=== PATIENT | female | born 1995 | race Caucasian/White ===

== ENCOUNTER 2020-11-22 05:41 | Day surgery (SDC) | payer OTHER, SELFPAY ==
[2020-11-21 16:28] VITALS: BMI 25.7
[2020-11-22] VITALS (7 sets, daily range): BP systolic 92–114; BP diastolic 60–74; PULSE 63–97; RESP 13–18; TEMP 36.2–36.6; O2SAT 95–100
--- NOTE | 2020-11-22 06:31 | ANES.PREANE2 ---
Pre-Anesthetic Assessment Pre-Anesthetic Assessment: Height/Weight: Height 1.63 m Weight 68.039 kg Proposed Procedure: Operation Date: 11/22/20 07:10 Proposed Procedures p Dilation And Curettage (D&C) O03.9 32381(Not Applicable) - Mendoza Caro MD Was Beta Angela taken within 24 hours: N/A Was Clonidine taken within 24 hours: N/A Last intake: Intake Last Liquid Date 11/21/20 Last Liquid Time 21:00 Last Solid Date 11/21/20 Last Solid Time 19:00 Social: Social History: No alcohol and No tobacco Exam: Pre-Anes Outpt Exam: alert, oriented x 3, clear to auscultation bilaterally and regular rate & rhythm Airway: Submandibular: WNL Cervical ROM: WNL MP: 2 Dentition: Full History/ROS: No significant history except as noted Neuropsych: Neuropsych: Anxiety Anesthetic Plan: ASA status: 2 Anesthesia: General Other: H/O PONV Risk of > 500 ml blood loss (7ml/kg in children): No PFSH Anesthesia PFSH: Social History (Updated 11/21/20 @ 16:16 by Maren Medellin) Smoking and tobacco status: never smoked Data Anesthesia Cardiac Studies: No Data to Display
[2020-11-22] MEDS: sodium chloride 0.9% 1,000 ML 30 ML IV (06:42)
[2020-11-22] MEDS: diphenhydrAMINE 50 mg/mL SDV 1mL 12.5 MG IVP (06:46)
--- NOTE | 2020-11-22 06:48 | P.HP_ITS ---
Providers/Chief Complaint Primary Care Provider: Mendoza Caro MD Chief Complaint: O03.4 History of Present Illness Anita Martin is a 25 year old female who presented to my office 2 days ago for checkup at 9 weeks estimated gestational age. During her visit, we were unable to obtain a heart tones. An ultrasound was done which demonstrated a nonviable fetus. We talked about options at that time, and we elected to proceed with Cytotec. She went home and took her first dose of Cytotec. She had severe cramping and had a small amount of bleeding, but was emotionally distressed, and physically was in a lot of pain. As result she contacted me, and we elected to proceed with a D&C. We once again discussed the alternatives and the option to continue to wait for a spontaneous . We discussed the risks of bleeding, and uterine perforation. She would like to proceed. Review of Systems General: Reports: 10 or more systems reviewed and unremarkable except in HPI and below Const: Denies: fever(s) Card: Denies: chest pain or irregular heart rhythm Resp: Denies: dyspnea : Reports: vaginal bleeding and pelvic pain Medications/Allergies Home Medications Medication Instructions Recorded Confirmed Last Taken Type alprazolam 0.25 mg PO Q4-5H PRN 11/21/20 11/21/20 Unknown History hydrocodone-acetaminophen [[place]] 1 tab PO Q4H PRN 11/21/20 11/21/20 Unknown History Allergies Allergy/AdvReac Type Severity Reaction Status Date / Time No Known Allergies Allergy Verified 11/21/20 16:14 PFSH PFSH: Social History Smoking and tobacco status: never smoked Vital Signs Weight: Weight last 48 hrs Weight 150 lb Weight 150 lb Weight 4 lb Physical Exam Const: COMMON NORMALS: no acute distress and patient oriented x3 GENERAL APPEARANCE: cooperative, comfortable and well developed HENMT: COMMON NORMALS: normocephalic and moist oral mucous membranes HEAD & SCALP: normocephalic Chest: COMMONS NORMALS: normal inspection of the chest Resp: COMMON NORMALS: normal respiratory effort and clear to auscultation bilaterally AUSCULTATION: clear to auscultation bilaterally Cardio: COMMON NORMALS: regular rate, regular rhythm, No gallops present (Cardio), No murmurs present (Cardio) and No rub (Cardio) RATE: regular rate RHYTHM: regular rhythm Extremity: COMMON NORMALS: normal to inspection Neuro: COMMON NORMALS: patient oriented x3 and no focal motor deficits Skin: COMMON NORMALS: no rashes or lesions noted GENERAL SKIN EXAM: no rashes or lesions noted A&P Assessment and plan (1) Incomplete : Proceed with a D&C. Suction will probably not be necessary but will have a set up just in case. 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
[2020-11-22] MEDS: midazolam 1 mg/mL INJ 2 mL 2 MG IVP (06:55)
--- NOTE | 2020-11-22 07:23 | PM.OP ---
Operative Report Date of procedure: November 22, 2020 Pre-op Diagnosis: Incomplete at 9 weeks estimated gestational age Post-op diagnosis: same Post-op Findings: Proximal of conception consistent with an incomplete at 9 weeks estimated gestational age Procedure Done: Dilation and curettage Specimens removed/disposition: Products of conception Pathology: other Pathology: Products of conception Surgeon: Mendoza Caro Anesthesia: General Estimated blood loss (mL): 20 Complications: None Condition: stable Disposition: same day Brief History: Refer to history and physical Procedure: The patient was brought back to the operating room where she was placed in the dorsolithotomy position and prepped in the usual fashion. After a brief Ellik exam was determined that her uterus was anteflexed a weighted speculum was then placed. A tenaculum was used to grasp the anterior lip of the cervix. Some products of conception were noted at the os of the cervix. It was grasped with ring forceps removed without difficulty. I then used a curette to carefully curettage all 4 quadrants of the uterus. Any remaining proximal of conception were also removed and sent to pathology. After obtaining an excellent uterine cry in all quadrants, the tenaculum was then removed. The cervix was observed and found no further bleeding. The patient was then wheeled to the PACU in stable condition. Associated Problem List Diagnoses (1) 9 weeks gestation of : (2) Incomplete :
--- NOTE | 2020-11-22 13:06 | ANE.PACU2 ---
Inpatient post-anesthesia follow up: Airway intact: Yes Vital signs: Temperature 98 F Pulse Rate 63 Respiratory Rate 16 Blood Pressure 114/73 Pulse Oximetry 95 Oxygen Delivery Me thod Room Air Oxygen Flow Rate 8 Fraction of Inspir ed Oxygen Hydration adequate: Yes Nausea and vomiting: No Pain level: 1 Mental status: Baseline
== END 2020-11-22 08:38 | disposition home or self-care (01) ==
PROVIDERS: PCP Family Medicine; Visit Provider Family Medicine
PROC: (CPT 58120; principal; 2020-11-22 07:00)
DX: O03.4 Incomplete spontaneous abortion without complication (principal); Z3A.09 9 weeks gestation of pregnancy
CPT/HCPCS: 59812; 12345; 88305; J1100; J1200; J2250; J2405; J2550; J2704; J3010; J7030

== ENCOUNTER 2022-11-19 05:15 | Inpatient (IN) | payer OTHER, SELFPAY ==
--- NOTE | 2022-11-10 09:10 | ANES.PREANE2 ---
Pre-Anesthetic Assessment Height/Weight: Height 1.63 m Preop Diagnosis: Incomplete at 9 weeks estimated gestational age Operation Date: 11/19/22 07:00 Proposed Procedures p Section(Not Applicable) - Mendoza Caro MD Familial anesthetic complications: PONV Social No alcohol and No tobacco Exam alert, oriented x 3, clear to auscultation bilaterally and regular rate & rhythm Airway Mallampati: Class II Dentition: full CV/HEM factor V leiden Deficiency (Has had epidural before) - No hx of symptoms or complications, but has been put on blood thinner. has been told to hold lovenox 40 mg daily for 12 hours before c section Anesthetic Plan ASA status: 3 Anesthesia: Regional (specify below) Risk of > 500 ml blood loss (7ml/kg in children): Yes, adequate IV access and fluids planned Medications/Allergies Home Medications Medication Instructions Recorded Confirmed Last Taken Type alprazolam 0.25 mg tablet 0.25 mg PO Q4-5H PRN Anxiety 11/21/20 11/21/20 Unknown History hydrocodone 10 mg-acetaminophen 1 tab PO Q4H PRN Pain 11/21/20 11/21/20 Unknown History 325 mg tablet ([place]) Allergies Allergy/AdvReac Type Severity Reaction Status Date / Time No Known Allergies Allergy Verified 11/21/20 16:14 PFS Anesthesia Social History Smoking and tobacco status: never smoked Data Anesthesia Cardiac Studies: No Data to Display
[2022-11-19] VITALS (37 sets, daily range): BP systolic 87–140; BP diastolic 45–84; PULSE 75–112; RESP 16–18; TEMP 36.3–36.9; O2SAT 98–100; BMI 32.2
[2022-11-19 05:21] LABS: Basophils % 0.3 %; Eosinophils # 0.1 10^3/uL (0.0-0.8); Eosinophils % 0.6 %; Hematocrit 40.7 % (37.0-47.0); Lymphocytes # 2.6 10^3/uL (0.8-4.8); Mean Corpuscular HGB Conc 31.9 g/dL (30.0-36.0); Mean Corpuscular Hemoglobin 27.5 pg (28.0-34.0); Mean Corpuscular Volume 86.2 fl (81-99); Mean Platelet Volume 11.3 fL (7.4-10.4); Monocytes % 7.8 %; Neutrophils # 8.41 10^3/uL (1.8-7.7); Neutrophils % 69.4 %; Nucleated Red Blood Cells % 0 %; Platelet Count 332 10^3/cmm (130-400); Red Blood Count 4.72 10^6/uL (4.1-5.3); Red Cell Distribution Width 14.1 % (12.1-15.1); White Blood Count 12.1 10^3/uL (4.0-10.0)
[2022-11-19] MEDS: ceFAZolin 2,000 MG in sodium chloride 0.9% (plus) 50 ML 100 MG IV (05:38)
[2022-11-19] MEDS: lactated ringers 1,000 ML 999 ML IV (05:38)
[2022-11-19] MEDS: metoclopramide 5 mg/mL SDV 2 mL 10 MG IVP (06:32)
[2022-11-19] MEDS: famotidine 20 mg/2 mL INJ IVP (06:32)
[2022-11-19] MEDS: citric acid-sodium citrate 30 mL UDC PO (06:32)
--- NOTE | 2022-11-19 06:49 | P.HP_ITS ---
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 The of the patient has been remarkable for being heterozygous factor V Leiden. She had had multiple miscarriages in the past and has been on Lovenox throughout her , and she stopped it about 36 hours prior to surgery. Otherwise, her has been unremarkable. . Present Details : 5 Para: 1 Labs Rubella: Immune RPR: Negative GBS: Negative Review of Systems General: Reports: 10 or more systems reviewed and unremarkable except in HPI and below Const: Reports: fatigue; Denies: fever(s) Eyes: Denies: change in vision Card: Denies: chest pain Musc: Reports: back pain Antwan/Lymph: Denies: easy bruising Medications/Allergies Home Medications Medication Instructions Recorded Confirmed Last Taken Type prenat.vits,hannah,kvy-pxnw-eahzi 1 tab PO DAILY 11/19/22 11/19/22 11/18/22 History docusate sodium 100 mg capsule 100 mg PO BID #14 caps 11/20/22 Unknown Rx hydrocodone 5 mg-acetaminophen 325 1 tab PO Q6H PRN Moderate To 11/20/22 Unknown Rx mg tablet Severe Pain #28 tabs ibuprofen 800 mg tablet 800 mg PO TID #45 tabs 11/20/22 Unknown Rx Allergies Allergy/AdvReac Type Severity Reaction Status Date / Time No Known Allergies Allergy Verified 11/19/22 05:26 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 PFSH: Medical History (Updated 11/21/22 @ 00:03 by ISA Millan) Factor V deficiency Surgical History (Updated 11/21/22 @ 00:03 by ISA Millan) History of Social History Smoking and tobacco status: never smoked Vitals/I&O/Wt Last Vital Signs Pulse 108 H 11/19/22 05:03 Resp 16 11/19/22 05:15 BP 127/84 11/19/22 05:03 O2 Del Method 11/19/22 05:42 Weight last 48 hrs Weight 188 lb Physical Exam Const: COMMON NORMALS: patient oriented x3 and alert HENMT: COMMON NORMALS: moist oral mucous membranes HEAD & SCALP: normal to inspection Chest: COMMONS NORMALS: normal inspection of the chest Resp: COMMON NORMALS: clear to auscultation bilaterally AUSCULTATION: clear to auscultation bilaterally Cardio: COMMON NORMALS: regular rate and regular rhythm RATE: regular rate RHYTHM: regular rhythm GI: INSPECTION: Yes normal to inspection and Yes other (Gravid) Extremity: COMMON NORMALS: normal to inspection GENERAL: Yes edema (Trace) Neuro: COMMON NORMALS: patient oriented x3, moves all extremities and no sensory deficits noted SENSORIUM/ORIENTATION: Yes alert Psych: COMMON NORMALS: mental status grossly normal Skin: COMMON NORMALS: no rashes or lesions noted GENERAL SKIN EXAM: no rashes or lesions noted Data 11/19/22 05:10 A&P Assessment and plan (1) 39 weeks gestation of : (2) History of : We will proceed with a repeat section. We have discussed the risks and alternatives. We discussed the risks of bleeding, infection, damage intra- abdominal organs. The patient had been on Lovenox due to her factor V def iciency. That was stopped on Wednesday. (3) Factor V deficiency: Attestations Medical Necessity Statement*: I anticipate routine and post C- section care. Coding Level of Care Code Acute Code for Chg Fwd Diagnoses 39 weeks gestation of Z3A.39 History of Z98.891 Factor V deficiency D68.2
--- NOTE | 2022-11-19 06:57 | P.ANESUD_ITS ---
Pre-Anesthetic Update Pre-Anesthetic Assessment: Date of Surgery/Procedure: 11/19/22 Preop Janice gnosis: Incomplete at 9 weeks estimated gestational age Proposed Procedure: Operation Date: 11/19/22 07:00 Proposed Procedures p Section(Not Applicable) - Mendoza Caro MD Any changes to Pre-Anesthetic Assessment?: No Changes from Pre-Anesthetic Assessment: 2199 Last Intake: Intake Last Liquid Date 11/18/22 Last Liquid Time 23:30 Last Solid Date 11/18/22 Last Solid Time 22:00 Last Intake: 22:00 Labs Last 48hrs: Short CBC 11/19/22 Range/Units 05:10 WBC 12.1 H (4.0-10.0) 10^3/ uL Hgb 13.0 (11.5-15.3) g/dL Hct 40.7 (37.0-47.0) % MCV 86.2 (81-99) fl Plt Count 332 (130-400) 10^3/c mm Neut % (Auto) 69.4 % Neut # (Auto) 8.41 H (1.8-7.7) 10^3/u L Vitals: Pulse Rate 101 H 11/19/22 06:51 Pulse Rhythm 11/19/22 05:42 Pulse Strength 3+ Normal 11/19/22 05:42 Respiratory Rate 16 11/19/22 05:15 Respiratory Effort Non-Labored 11/19/22 05:42 Respiratory Depth Normal 11/19/22 05:42 Respiratory Patter n 11/19/22 05:42 Blood Pressure 111/74 11/19/22 06:51 Oxygen Delivery Me thod 11/19/22 05:42 Exam: Pre-Anes Outpt Exam: alert, oriented x 3, clear to auscultation bilaterally and regular rate & rhythm Cardiac Studies: No Data to Display
--- NOTE | 2022-11-19 08:29 | PM.OP ---
Operative Report Date of procedure: November 19, 2022 Pre-op diagnosis: 27-year-old 39-week estimated gestational age female presenting for a repeat section Post-op diagnosis: Status post lower transverse section Procedure done: Lower transverse section Specimens removed/disposition: 1. Male with a weight of 7 pounds 13 ounces and Apgars of 8 and 9 2. Placenta with a three-vessel cord delivered intact Surgeon: Mendoza Caro Estimated blood loss (mL): 800 Complications: None Procedure: The patient was brought back to the operating room where she was prepped and draped in usual sterile fashion. Anesthesia was found to be adequate. A lower transverse skin incision was then made with a #10 blade. I then dissected down to the underlying subcutaneous tissue until arriving at the prerectal fascia. The fascia was then nicked with the scalpel bilaterally. The fascial incisions were then carried laterally with Yin scissors. Attention was then turned to the superior aspect of the incision which was grasped with kochers and tented up away from the underlying rectus abdominis muscles. The muscles were then dissected away from the fascia manually, and later with Yin scissors. Attention was then turned to the inferior aspect of the incision, and the fascia was dissected away from the underlying muscle in similar fashion. The rectus abdominis muscles were then spread manually. The peritoneum was entered manually. Excellent visualization of the uterus was noted. A lower transverse uterine incision was then made with a #10 blade. Upon arriving at the intrauterine cavity, the uterine incision was then extended manually. The was noted to be in vertex position. The baby was delivered without difficulty. After delivery of the head, the mouth and nose were suctioned at the site of the incision. There was no meconium. There was a nuchal cord x1. The remainder of the body was then delivered and placed on the abdomen. The cord was cut and clamped. The baby was then handed to the waiting nurse. The placenta was removed intact. The uterus was externalized. The intrauterine cavity was cleansed of any remaining debris. The uterine incision was reapproximated in 2 layers. The first layer was performed with 0 Vicryl in a running locked stitch. The second layer was an imbricating stitch also using 0 Vicryl. The uterus was replaced into the abdomen. The peritoneum was then irrigated with warm saline. I reexamined the uterine incision and found it to be hemostatic. The rectus abdominis muscles were then reapproximated using 0 Vicryl in a running stitch. The fascia was then reapproximated using 0 Vicryl in running stitch. The skin was reapproximated using liliam. A sterile dressing was placed. All counts were correct x2. Both the mother and baby were in stable condition.
--- NOTE | 2022-11-19 10:34 | PC.NURSE ---
0800 REMAINS IN OR.
[2022-11-19] MEDS: dextrose 5%-lactated ringers 1,000 ML 125 ML IV (11:04)
--- NOTE | 2022-11-19 11:40 | PC.NURSE ---
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 HAD ASKED MIRNA TO HAVE SOMEONE RUB HER AT 1015.
[2022-11-19] MEDS: ondansetron 2 mg/ML SDV 2 mL 4 MG IVP (12:06)
--- NOTE | 2022-11-19 12:52 | ANE.PACU2 ---
Inpatient post-anesthesia follow up: Airway intact: Yes Vital signs: Temperature 98.4 F Pulse Rate 96 Respiratory Rate 16 Blood Pressure 113/66 Pulse Oximetry Oxygen Delivery Me thod Room Air Oxygen Flow Rate Fraction of Inspir ed Oxygen Hydration adequate: Yes Nausea and vomiting: No Pain level: 2 Mental status: Baseline
--- NOTE | 2022-11-19 15:37 | PC.NURSE ---
1505 PT UP TO CHAIR, DID GREAT.
[2022-11-19] MEDS: ketorolac 30 mg/mL INJ IVP ×2 (17:29→23:42)
[2022-11-19 22:43] LABS: Hematocrit 32.7 % (37.0-47.0); Hemoglobin 10.7 g/dL (11.5-15.3); Mean Corpuscular HGB Conc 32.7 g/dL (30.0-36.0); Mean Corpuscular Hemoglobin 28.1 pg (28.0-34.0); Mean Corpuscular Volume 85.8 fl (81-99); Mean Platelet Volume 11.1 fL (7.4-10.4); Platelet Count 236 10^3/cmm (130-400); Red Blood Count 3.81 10^6/uL (4.1-5.3); Red Cell Distribution Width 14.2 % (12.1-15.1); White Blood Count 16.6 10^3/uL (4.0-10.0)
[2022-11-20 02:25] VITALS: BP 102/62; PULSE 78
[2022-11-20] MEDS: simethicone 80 mg Chew PO (02:38)
[2022-11-20] MEDS: HYDROcodone-acetaminophen 5-325 mg Tablet PO ×2 (04:08→08:10)
[2022-11-20 04:11] VITALS: BP 96/58; PULSE 86; RESP 16
[2022-11-20] MEDS: docusate sodium 100 mg Capsule PO (08:10)
[2022-11-20] MEDS: prenatal vitamin Capsule 1 CAP PO (08:10)
[2022-11-20] MEDS: ibuprofen 800 mg tablet PO (09:23)
[2022-11-20] MEDS: cetirizine 10 mg Tablet PO (09:23)
[2022-11-20 10:31] VITALS: BP 116/73; PULSE 92; TEMP 36.1
[2022-11-20 11:03] VITALS: BP 116/73; PULSE 92; RESP 18; TEMP 36.1
--- NOTE | 2022-12-07 06:58 | PM.OBGYDC ---
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 The was unremarkable. Her course was also unremarkable. Her pain was within normal limits. Her bleeding was within normal limits. She passed flatus. She tolerated a regular diet well. There were no concerns. Information Peripartum Data: Infant Delivery Method: Physical Exam Narrative: She is in no acute distress Lungs are clear auscultation bilaterally Her heart has a regular rate and rhythm Her fundus is below the umbilicus and firm Her dressing is clean, dry and intact Her extremities have trace edema Urinary Catheter Management: Mena: Cath Placed During This Visit: yes, but has since been removed by the nurse Reason for Continuing Indwelling Catheter: Decision to DC Catheter Urinary Catheter Date of Insertion: 11/19/22 Urinary Catheter Time of Insertion: 07:15 Date Urinary Catheter Removed: 11/20/22 Time Urinary Catheter Discontinued: 02:43 Discharge Data Studies Completed and Pending Laboratory Results WBC 16.6 10^3/uL (4.0-10.0) H 11/19/22 22:35 RBC 3.81 10^6/uL (4.1-5.3) L 11/19/22 22:35 Hgb 10.7 g/dL (11.5-15.3) L 11/19/22 22:35 Hct 32.7 % (37.0-47.0) L 11/19/22 22:35 MCV 85.8 fl (81-99) 11/19/22 22:35 MCH 28.1 pg (28.0-34.0) 11/19/22 22:35 MCHC 32.7 g/dL (30.0-36.0) 11/19/22 22:35 RDW 14.2 % (12.1-15.1) 11/19/22 22:35 Plt Count 236 10^3/cmm (130-400) 11/19/22 22:35 MPV 11.1 fL (7.4-10.4) H 11/19/22 22:35 Neut % (Auto) 69.4 % 11/19/22 05:10 Lymph % (Auto) 21.0 % 11/19/22 05:10 [place] % (Auto) 7.8 % 11/19/22 05:10 Eos % (Auto) 0.6 % 11/19/22 05:10 Baso % (Auto) 0.3 % 11/19/22 05:10 Neut # (Auto) 8.41 10^3/uL (1.8-7.7) H 11/19/22 05:10 Lymph # (Auto) 2.6 10^3/uL (0.8-4.8) 11/19/22 05:10 [place] # (Auto) 1.0 10^3/uL (0.2-0.9) H 11/19/22 05:10 Eos # (Auto) 0.1 10^3/uL (0.0-0.8) 11/19/22 05:10 Baso # (Auto) 0.0 10^3/uL (0.0-0.1) 11/19/22 05:10 Nucleated RBC % (auto) 0 % 11/19/22 05:10 Nucleated RBCs # 0.0 /100WBC 11/19/22 05:10 Vitals Last Vital Signs Temp 97.0 F L 11/20/22 11:03 Pulse 92 11/20/22 11:03 Resp 18 11/20/22 11:03 BP 116/73 11/20/22 11:03 Pulse Ox 100 11/19/22 08:30 O2 Del Method 11/19/22 08:30 Discharge Plan Discharge Patient Disposition: Home Condition: Stable Prescriptions: New ibuprofen 800 mg Tablet 800 mg PO TID Qty: 45 0RF hydrocodone-acetaminophen 5-325 mg Tablet 1 tab PO Q6H PRN (Reason: Moderate To Severe Pain) Qty: 28 0RF docusate sodium 100 mg Capsule 100 mg PO BID Qty: 14 0RF Continued prenat.vits,hannah,[id number] Tablet 1 tab PO DAILY Discontinued famotidine [Pepcid] 40 mg Tablet 40 mg PO BID Discharge Orders: Discharge Order (Routine); Ordered 11/20/22 Ordered By: Mendoza Caro Referrals: Mendoza Caro MD [Primary Care Provider] - 4-7 days (Lino Sarthak will be calling you with your follow-up appointments) Discharge Diet: Usual diet Discharge Activity: Limit activity as instructed Patient Instructions: Depression (DC), Bleeding (DC), Preeclampsia and Eclampsia After Delivery (GEN), Hemorrhage (DC), OB - Gordo/Jeri, OB Discharge Report, OB Food/Drug Interaction Guide, OB Care at Home, Opioid Safety, OB Home Care Discharge Attestations FERRIS WHEEL ATTENDANT Time Spent in Discharge Care*: less than 30 min Coding Level of Care Code Acute Code for Chg Fwd Diagnoses 39 weeks gestation of Z3A.39 History of Z98.891 Factor V deficiency D68.2
== END 2022-11-20 11:00 | disposition home or self-care (01) | DRG 787 ==
PROVIDERS: Admitting Provider Family Medicine; PCP Family Medicine; Visit Provider Family Medicine
PROC: 10D00Z1 Extraction of Products of Conception, Low, Open Approach (ICD-10-PCS; CPT 59514; 2022-11-19 07:00)
DX: O34.219 Maternal care for unspecified type scar from previous cesarean delivery (principal); D68.51 Activated protein C resistance; O99.12 Other diseases of the blood and blood-forming organs and certain disorders involving the immune mechanism complicating childbirth; Q61.3 Polycystic kidney, unspecified; O99.344 Other mental disorders complicating childbirth; O69.2XX0 Labor and delivery complicated by other cord entanglement, with compression, not applicable or unspecified; Z3A.39 39 weeks gestation of pregnancy; Z37.0 Single live birth; F41.8 Other specified anxiety disorders
CPT/HCPCS: 12345; 36415; 51702; 59025; 59409; 85025; 85027; 96374; 96376; J0690; J1885; J2274; J2370; J2405; J2765; J3490; J7120; J7121